=== PATIENT | male | born 1965 | race African-American/Black ===

== ENCOUNTER 2024-06-12 19:06 | Emergency (ER) | payer OTHER ==
[~2024-06-12 19:06] MED LIST: Iopamidol 370 76% 100 ML VIAL ONE
[2024-06-12 19:39] LABS: Hematocrit 49.7 % (42.0-52.0); Hemoglobin 14.7 g/dL (14.0-18.0); Mean Corpuscular HGB CONC 29.6 g/dL (32.0-36.0); Mean Corpuscular Hemoglobin 28.5 pg (27.0-31.0); Mean Corpuscular Volume 96.2 fl (78.0-98.0); Mean Platelet Volume 5.9 fL (7.4-10.4); Platelet Count 225 10x3/uL (130-400); RBC Distribution Width 14.5 % (11.5-14.5); Red Blood Cell (RBC) Count 5.17 mill/uL (4.70-6.10); White Blood Cell (WBC) Count 8.3 10x3/uL (4.8-10.8)
[2024-06-12 19:41] LABS: Band 2 % (5-11); Eosinophils 3 % (0-10); Lymphocytes 24 % (21-51); Monocytes 6 % (0-10); Neutrophil 64 % (42-75)
[2024-06-12 19:42] LABS: MDiff Complete? YES
[2024-06-12] MEDS ORDERED: Ondansetron PF 4 MG/2 ML Vial ONE (19:43)
[2024-06-12 19:46] LABS: ALT (SGPT) 17 U/L (8-55); AST (SGOT) 26 U/L (5-34); Alkaline Phosphatase 92 U/L (40-110); Anion Gap 19 mmol/L (10-20); BUN (Urea Nitrogen) 11 mg/dL (8.4-25.7); Bilirubin, Total 0.5 mg/dL (0.2-1.2); Calc. Creatinine Clearance 0 mL/min (70-130); Calcium 8.7 mg/dL (7.8-10.44); Carbon Dioxide 18 mmol/L (22-29); Chloride 105 mmol/L (98-107); Estimated GFR 70; Globulin 3.7 g/dL (2.4-3.5); Glucose 123 mg/dL (70-105); Lipase 36 U/L (8-78); Potassium 3.7 mmol/L (3.5-5.1); Protein, Total 7.7 g/dL (6.0-8.3); Sodium 138 mmol/L (136-145)
[2024-06-12 19:52] LABS: Troponin I Less than 0.010 ng/mL (< 0.028)
[2024-06-12] MEDS ORDERED: Sodium Chloride 0.9% 500 ML ONE (20:37)
[2024-06-12 20:40] LABS: Bicarbonate (HCO3v) 22.9 mmol/L (22.0-28.0); CO2 Tension (PvCO2) 38.2 mmHg (42.0-51.0)
[2024-06-12 20:41] LABS: Calcium, Ionized 1.08 mmol/L (1.15-1.33); Chloride 107 mmol/L (98-107); Potassium 3.7 mmol/L (3.5-5.1); Sodium 139 mmol/L (138-145); T. Carbon Dioxide 24.1 mmol/L (22.0-28.0)
[2024-06-12 20:42] LABS: Base Excess-Venous -1.8 mmol/L (-2.0 to 3.0); Hemoglobin - Calc 17.4 g/dL (14.0-18.0)
[2024-06-12 21:35] LABS: Bilirubin Negative (Negative); Blood, Urine Negative (Negative); Clarity Clear (Clear); Glucose, Urine (Dipstick) Negative (Negative); Ketone, Urine Negative (Negative); Leukocyte Negative (Negative); Nitrite Negative (Negative); Protein, Urine (Dipstick) Negative (Neg-Trace); Specific Gravity, Urine 1.015 (1.005-1.030); Urobilinogen 0.2 mg/dL (Less than 2)
[2024-06-12 21:37] LABS: RBC/HPF 0-3 HPF (0-3)
[2024-06-12 21:38] LABS: Bacteria/HPF Rare-Few HPF (None Seen); CAUTI Indications for Culture Fever or rigors; Squamous Epithelial 0-3 HPF (0-3); Urine Culture Reflex No No; WBC/HPF 0-3 HPF (0-3)
== END 2024-06-12 22:10 | disposition home or self-care (01) ==
LOC: MADERS 19:06
DX: R55 Syncope and collapse (principal); R11.2 Nausea with vomiting, unspecified
CPT/HCPCS: 70450; 71045; 74177; 80053; 81001; 82330; 82435; 82803; 83690; 83880; 84132; 84295; 84484; 85014; 85025; 85379; 93005; 96374; J2405; J7030; Q9967